=== PATIENT | male | born 1940 | race Caucasian/White ===

== ENCOUNTER 2018-10-07 06:42 | Outpatient (CLI) | payer MEDICARE ==
[2018-10-07 14:22] LABS: Bilirubin Negative (Negative); Blood, Urine Negative (Negative); Clarity CLEAR (Clear); Glucose, Urine (Dipstick) Negative (Negative); Leukocyte Trace (Negative); Nitrite Negative (Negative); Protein, Urine (Dipstick) Negative (Neg-Trace); Specific Gravity, Urine 1.013 (1.002-1.036); Urobilinogen 0.2 mg/dL (0.2-1.0)
[2018-10-07 14:27] LABS: Bacteria/HPF None Seen HPF (None Seen); Hyaline Casts/LPF 0-3 HYALINE CAST LPF (0-3 Hyaline); RBC/HPF 0-3 HPF (0-3); Squamous Epithelial 0-3 HPF (0-3); WBC/HPF None Seen HPF (0-3)
--- NOTE | 2018-10-08 21:05 | EKG ---
Test Reason : Blood Pressure : / mmHG Vent. Rate : 072 BPM Atrial Rate : 072 BPM P-R Int : 180 ms QRS Dur : 084 ms QT Int : 428 ms P-R-T Axes : 069 022 066 degrees QTc Int : 468 ms Normal sinus rhythm Possible Left atrial enlargement Borderline ECG No previous ECGs available Confirmed by Hannah BHAKTA ([id number]) on 10/08/2018 9:05:21 PM Referred By: THEODORA Confirmed By:Hannah BHAKTA
== END 2018-10-07 06:43 | disposition home or self-care (01) ==
LOC: LABBT 06:42
PROVIDERS: ATTEND Orthopaedic Surgery
DX: Z01.818 Encounter for other preprocedural examination (principal); M17.12 Unilateral primary osteoarthritis, left knee
CPT/HCPCS: 81001; 87081; 93005; 93010

== ENCOUNTER 2018-10-13 10:34 | Outpatient (CLI) | payer MEDICARE ==
[2018-10-13 11:08] LABS: #Lymphocytes 1.4 thou/uL (1.20-3.40); #Monocytes 0.4 thou/uL (0.11-0.59); #Neutrophils 3.1 thou/uL (1.40-6.50); %Basophils 0.7 % (0.0-1.0); %Eosinophils 0.7 % (0.0-10.0); %Monocytes 7.9 % (0.0-10.0); %Neutrophils 61.8 % (42.0-75.0); Hemoglobin 14.5 g/dL (14.0-18.0); Mean Corpuscular HGB CONC 32.9 g/dL (32.0-36.0); Mean Corpuscular Hemoglobin 33.3 pg (27.0-31.0); Mean Platelet Volume 7.7 fL (7.4-10.4); Platelet Count 207 thou/uL (130-400); Red Blood Cell (RBC) Count 4.35 mill/uL (4.70-6.10)
[2018-10-13 11:12] LABS: Prothrombin Time 13.5 SEC (12.0-14.7)
[2018-10-13 11:30] LABS: Anion Gap 13 mmol/L (10-20); BUN (Urea Nitrogen) 12 mg/dL (8.4-25.7); Calc. Creatinine Clearance 0 mL/min (70-130); Carbon Dioxide 26 mmol/L (23-31); Chloride 106 mmol/L (98-107); Estimated GFR-MDRD Greater than 90; Glucose 110 mg/dL (83-110); Potassium 4.1 mmol/L (3.5-5.1); Sodium 141 mmol/L (136-145)
== END 2018-10-13 10:35 | disposition home or self-care (01) ==
LOC: LABBT 10:34
PROVIDERS: ATTEND Orthopaedic Surgery
DX: Z01.812 Encounter for preprocedural laboratory examination (principal); M17.12 Unilateral primary osteoarthritis, left knee
CPT/HCPCS: 80048; 85025; 85610; 86850; 86900; 86901

== ENCOUNTER 2018-10-18 05:42 | Inpatient (IN) | payer MEDICARE ==
[2018-10-18] MEDS ORDERED: Sodium Chloride 0.9% 100 ML ONE (06:01)
[2018-10-18] MEDS ORDERED: Tranexamic Acid 1,000 MG/10 ML VIAL ONE ×2 (06:01→09:14)
[2018-10-18] MEDS ORDERED: CEFAZOLIN 2 GM/50 ML BAG ONE (06:01)
[2018-10-18] MEDS ORDERED: Midazolam HCl 2 mg/2 ml Vial ONE (06:29)
[2018-10-18] MEDS ORDERED: Fentanyl 100 MCG/2 ML VIAL ONE ×2 (06:29→09:38)
[2018-10-18] MEDS ORDERED: Bupivacaine PF 0.5% 30 ML VIAL ONE (06:32)
[2018-10-18] MEDS ORDERED: Promethazine HCl 25 MG/ML VIAL IM PRN ×3 (07:24→08:21)
[2018-10-18] MEDS ORDERED: Zolpidem Tartrate 5 MG TAB PO PRN ×2 (07:24→07:37)
[2018-10-18] MEDS ORDERED: diphenhydrAMINE 25 MG CAP PO PRN (07:24)
[2018-10-18] MEDS ORDERED: traMADol HCl 50 MG TAB PO PRN ×3 (07:24→07:37)
[2018-10-18] MEDS ORDERED: Acetaminophen 325 MG TAB PO PRN (07:24)
[2018-10-18] MEDS ORDERED: Fentanyl 100 MCG/2 ML VIAL SLOW IVP PRN (07:24)
[2018-10-18] MEDS ORDERED: HYDROcodone/Acetaminophen 10/325 mg Tablet PO PRN (07:24)
[2018-10-18] MEDS ORDERED: Ondansetron PF 4 MG/2 ML Vial IVP PRN ×2 (07:24→07:37)
[2018-10-18] MEDS ORDERED: CEFAZOLIN/Water 2 GM/20 ML SYRINGE SLOW IVP SCH (07:30)
[2018-10-18] MEDS ORDERED: Tranexamic Acid 1,000 MG in Sodium Chloride 0.9% 100 ML IVPB SCH (07:30)
[2018-10-18] MEDS ORDERED: Ropivacaine HCl/PF 250 ML in Premix Bag 1 BAG NERVE BLCK SCH (07:37)
[2018-10-18] MEDS ORDERED: Fentanyl 100 MCG/2 ML VIAL IV PRN (07:38)
[2018-10-18] MEDS ORDERED: HYDROcodone/Acetaminophen 7.5/325 mg Tablet PO PRN ×2 (07:39)
[2018-10-18] MEDS ORDERED: Ondansetron HCl/PF 4 MG/2 ML Vial IVP PRN (08:21)
[2018-10-18] MEDS ORDERED: Promethazine HCl 25 MG/ML VIAL SLOW IVP PRN (08:21)
[2018-10-18] MEDS ORDERED: Non-Formulary Item 1 EACH (Fexofenadine Hcl [Allegra Allergy] 180 MG) PO SCH (09:00)
[2018-10-18] MEDS: CeleCOXIB 100 MG CAP PO SCH (12:27)
[2018-10-18] MEDS: Ferrous Gluconate 324 MG TAB PO SCH ×2 (12:27→20:33)
[2018-10-18] MEDS: Sodium Chloride 0.9% 1,000 ML IV SCH ×2 (12:27→18:43)
[2018-10-18] MEDS: Aspirin 81 mg Enteric Coated Tablet PO SCH ×2 (12:27→20:33)
[2018-10-18] MEDS: Loratadine 10 MG TAB PO SCH (12:28)
[2018-10-18] MEDS: Multivitamin W/ Minerals 1 TAB PO SCH (12:28)
[2018-10-18] MEDS: Rosuvastatin 10 MG TAB PO SCH (12:28)
[2018-10-18] MEDS: Senokot S 8.6-50 MG TAB PO SCH ×2 (12:29→20:33)
[2018-10-18] MEDS: Ketorolac Tromethamine 30 MG/ML VIAL IVP SCH ×2 (13:13→18:48)
[2018-10-18] MEDS: CEFAZOLIN 2 GM/50 ML-DEXTROSE 2 GM in Premix Bag 1 BAG IVPB SCH ×2 (13:14→20:40)
[2018-10-18] MEDS ORDERED: Ropivacaine 0.2% HCl/PF (40 MG/20 ML VIAL) ONE (13:25)
[2018-10-18] MEDS ORDERED: Ropivacaine 0.5% HCl/PF (150 MG/30 ML VIAL) ONE (13:25)
[2018-10-18 13:46] VITALS: BMI 21.1
[2018-10-18] MEDS ORDERED: PROPOFOL 200 MG/20 ML VIAL ONE (14:04)
[2018-10-18] MEDS ORDERED: Lidocaine 1% PF 5 ML VIAL ONE (14:04)
[2018-10-18] MEDS ORDERED: Ondansetron PF 4 MG/2 ML Vial ONE (14:04)
[2018-10-18] MEDS ORDERED: ePHEDrine/0.9% NaCl/PF SYRINGE 50 mg/10 ml ONE (14:04)
[2018-10-18] MEDS ORDERED: Vancomycin HCl 1 GM in Premix Bag 1 BAG IVPB SCH (18:00)
--- NOTE | 2018-10-18 18:24 | PDOC.PN ---
- Subjective Encounter Start Date: 10/18/18 Encounter Start Time: 15:00 Pt seen for management of medical comorbidities including dyslipidemia. Denies any complaints. - Objective MAR Reviewed: Yes Vital Signs & Weight: Vital Signs (12 hours) Temp Pulse Resp BP Pulse Ox 10/18/18 10:17 97.6 F 69 16 141/78 H 98 Weight Weight 123 lb Additional Labs: Labs reviewed by me Phys Exam - Physical Examination Constitutional: NAD HEENT: moist MMs Neck: supple Respiratory: clear to auscultation bilateral Cardiovascular: RRR Gastrointestinal: soft s/p L knee surgery Neurological: moves all 4 limbs Psychiatric: normal affect Dx/Plan (1) Dyslipidemia Code(s): E78.5 - HYPERLIPIDEMIA, UNSPECIFIED Status: Chronic Comment: continue statin (2) Arthritis Code(s): M19.90 - UNSPECIFIED OSTEOARTHRITIS, UNSPECIFIED SITE Status: Chronic Comment: s/p L TKR DVT prophylaxis and pain management per primary service. - Plan * . Review of Systems - Review of Systems Respiratory: negative: Cough, Shortness of Breath, SOB with Excertion, Pleuritic Pain, Wheezing Cardiovascular: negative: chest pain, palpitations, orthopnea, paroxysmal nocturnal dyspnea, edema, light headedness - Medications/Allergies Allergies/Adverse Reactions: Allergies Allergy/AdvReac Type Severity Reaction Status Date / Time No Known Allergies Allergy Verified 10/07/18 13:07 Medications: Current Medications Acetaminophen (Tylenol) 650 mg PO Q4H PRN PRN Reason: Headache/Fever or Pain Hydrocodone Bitart/Acetaminophen ([place] 10/325) 1 tab PO Q4H PRN PRN Reason: Moderate Pain (4-6) Hydrocodone Bitart/Acetaminophen ([place] 10/325) 2 tab PO Q4H PRN PRN Reason: Severe Pain (7-10) Aspirin (Ecotrin) 81 mg PO BID [facility] Last Admin: 10/18/18 12:27 Dose: Not Given Celecoxib (Celebrex) 200 mg PO DAILY [facility] Last Admin: 10/18/18 12:27 Dose: Not Given Diphenhydramine HCl (Benadryl) 25 mg PO Q6H PRN PRN Reason: Itching Fentanyl (Sublimaze) 100 mcg SLOW IVP Q1H PRN PRN Reason: Severe Pain (7-10) Fentanyl (Sublimaze) 50 mcg IV Q1H PRN PRN Reason: BREAKTHROUGH PAIN Ferrous Gluconate (Fergon) 324 mg PO BID [facility] Last Admin: 10/18/18 12:27 Dose: Not Given Sodium Chloride (Normal Saline 0.9%) 1,000 mls @ 100 mls/hr IV .Q10H [facility] Last Admin: 10/18/18 12:27 Dose: Not Given Vancomycin HCl 1 gm/ Device 200 mls @ 200 mls/hr IVPB 1800 [facility] Stop: 10/18/18 18:59 Ropivacaine 250 ml/ Device 250 mls @ 0 mls/hr NERVE BLCK INF [facility] Cefazolin Sodium/Dextrose 2 gm (/ Device) 50 mls @ 100 mls/hr IVPB Q8HR [facility] Stop: 10/18/18 22:29 Last Admin: 10/18/18 13:14 Dose: 50 mls Iron/Minerals/Multivitamins (Theragran M) 1 tab PO DAILY [facility] Last Admin: 10/18/18 12:28 Dose: Not Given Ketorolac Tromethamine (Toradol) 15 mg IVP Q6HR [facility] Stop: 10/20/18 06:01 Last Admin: 10/18/18 13:13 Dose: 15 mg Loratadine (Claritin) 10 mg PO DAILY [facility] Last Admin: 10/18/18 12:28 Dose: Not Given Ondansetron HCl (Zofran) 4 mg IVP Q6H PRN PRN Reason: Nausea/Vomiting Ondansetron HCl (Zofran) 4 mg IVP Q6H PRN PRN Reason: Nausea/Vomiting (Lutein Extract/Zeaxanthin Ext [ Lutein 15 Mg Softgel ] 1 Cap) Hm Med 0 each PO DAILY [facility] Promethazine HCl (Phenergan) 12.5 mg IM Q4H PRN PRN Reason: Nausea/Vomiting Rosuvastatin Calcium (Crestor) 50 mg PO DAILY [facility] Last Admin: 10/18/18 12:28 Dose: Not Given Senna/Docusate Sodium (Senokot S) 2 tab PO BID [facility] Last Admin: 10/18/18 12:29 Dose: Not Given Sodium Chloride (Flush - Normal Saline) 10 ml IVF PRN PRN PRN Reason: Saline Flush Tramadol HCl (Ultram) 100 mg PO Q6H PRN PRN Reason: Moderate Pain (4-6) Zolpidem Tartrate (Ambien) 5 mg PO HSPRN PRN PRN Reason: Insomnia
[2018-10-19] MEDS: Ketorolac Tromethamine 30 MG/ML VIAL IVP SCH ×4 (00:16→17:58)
[2018-10-19] MEDS: Sodium Chloride 0.9% 1,000 ML IV SCH ×3 (03:50→20:30)
[2018-10-19 05:53] LABS: Hemoglobin 11.7 g/dL (12.0-16.0); Mean Corpuscular HGB CONC 33.9 g/dL (32.0-36.0); Mean Corpuscular Hemoglobin 33.8 pg (27.0-31.0); Mean Corpuscular Volume 99.9 fL (78.0-98.0); Platelet Count 158 thou/uL (130-400); RBC Distribution Width 10.8 % (11.5-14.5); Red Blood Cell (RBC) Count 3.45 mill/uL (4.20-5.40); White Blood Cell (WBC) Count 9.3 thou/uL (4.8-10.8)
[2018-10-19] MEDS: Vit A,C & E/Lutein/Minerals Tablet PO SCH (08:42)
[2018-10-19] MEDS: Senokot S 8.6-50 MG TAB PO SCH ×2 (08:42→20:21)
[2018-10-19] MEDS: Ferrous Gluconate 324 MG TAB PO SCH ×2 (08:43→20:22)
[2018-10-19] MEDS: CeleCOXIB 100 MG CAP PO SCH (08:43)
[2018-10-19] MEDS: Aspirin 81 mg Enteric Coated Tablet PO SCH ×2 (08:43→20:21)
[2018-10-19] MEDS: Multivitamin W/ Minerals 1 TAB PO SCH (08:43)
[2018-10-19] MEDS: Loratadine 10 MG TAB PO SCH (08:44)
--- NOTE | 2018-10-19 10:39 | OP ---
DATE OF PROCEDURE: 10/18/2018 PREOPERATIVE DIAGNOSIS: Left knee osteoarthrosis. POSTOPERATIVE DIAGNOSIS: Left knee osteoarthrosis. PROCEDURE PERFORMED: Left total knee replacement using [employer] pinless navigation system. LIVESTOCK SHOWMAN: Mitchel Fonseca MD BLOOD LOSS: Minimal. ANESTHESIA: The patient did have a general anesthetic as well as a preoperative block. DISPOSITION: She did go to recovery room in stable condition. IMPLANTS: Implants to the left knee, [employer] total knee system. The femur was a size 3 cruciate retaining. We used a size 3 primary tibial base plate. We used a 3 x 9 mm CS X3 tibial bearing and an asymmetric 29 x 9 X3 patella. INDICATIONS: A 78-year-old female, who has failed all nonoperative treatment for left knee osteoarthrosis and at this time, wished to have her knee replaced. COMPLICATIONS: None. TOURNIQUET TIME: PROCEDURE IN DETAIL: After all appropriate consent forms were explained and signed, the patient was taken back to the operating room and at this time was given general anesthetic. Once the level of anesthesia was appropriate, a well-padded tourniquet was placed on the left leg, and the leg was then prepped and draped in standard surgical fashion. The limb was exsanguinated and tourniquet taken up to 300 mmHg. Midline incision was made with a 10 blade down through the skin and subcutaneous tissue. Bovie electrocautery was used to coagulate any brisk venous bleeding. A new blade was used to make a medial parapatellar arthrotomy. Small subperiosteal release was performed medially and excess fat pad was removed. The knee was flexed up to gain access to the femur. The femur was navigated and distal femoral resection was made. Epicondylar access was used to align our sizing jig and this was pinned in place. We sized our femur to be a 3. 4:1 cutting block was applied and pinned. Anterior and posterior chamfer cuts were then made. We navigated out our proximal tibia and made our proximal tibial resection. Spreaders were used to remove any posterior osteophytes off the back of the femur as well as remaining meniscal tissue. A long alignment ramon was then used to achieve correct rotation of our tibial baseplate and a size 3 was chosen. This was pinned in place. We trialed the polyethylene and a 3 x 9 mm CS X3 polyethylene gave us full extension and good stability throughout range of motion. Two towel clips and a saw were used to cut our patella. Three lug nuts were drilled and 29 x 9 X3 patella was trialed which sat nicely in the trochlear groove. We then drilled our femur and punched our tibia. All components were removed. The knee was thoroughly irrigated and dried. Cement was mixed into the cement gun on the back table. Components were then placed. The knee was held out in full extension until the cement had dried. All excess bone cement was removed. Multiple #2 Vicryl stitches as well as a Quill were used to close our extensor mechanism. 0 Quill followed by a running Monoderm was then used to close the skin. Surgicel glue was then used on the skin. Once this had dried, soft tissue dressing was applied to the limb, tourniquet was let down, and the toes pinked up nicely. The patient was then awakened and taken to the recovery room in stable condition. All counts were correct at the end of the case. The patient did receive preoperative IV antibiotics. The patient was injected with Exparel for postoperative pain relief. Job ID: [id number]
--- NOTE | 2018-10-19 12:16 | PDOC.PN ---
- Subjective Encounter Start Date: 10/19/18 Encounter Start Time: 07:30 -: old records requested/rev Patient seen and examined. No new complaints. No overnight events - Objective Resuscitation Status - Order Detail: 10/19/18 07:57 Resuscitation Status Routine Resuscitation Status: FULL: Full Resuscitation MAR Reviewed: Yes Vital Signs & Weight: Vital Signs (12 hours) Temp Pulse Resp BP Pulse Ox 10/19/18 07:08 98.7 F 84 16 107/65 95 10/19/18 04:00 97.8 F 80 16 100/79 93 L Weight Weight 123 lb I&O: 10/18/18 10/19/18 10/20/18 06:59 06:59 06:59 Intake Total 1520 Output Total 400 Balance 1120 Result Diagrams: 10/19/18 05:04 Phys Exam - Physical Examination Constitutional: NAD HEENT: PERRLA, moist MMs, sclera anicteric Neck: no JVD, supple Respiratory: no wheezing, no rales, no rhonchi Cardiovascular: RRR, no significant murmur, no rub Gastrointestinal: soft, non-tender, no distention, positive bowel sounds Musculoskeletal: no edema, pulses present left knee with dressing, nerve block in place Neurological: non-focal, normal sensation, moves all 4 limbs Lymphatic: no nodes Psychiatric: normal affect, A&O x 3 Skin: no rash, normal turgor Dx/Plan (1) Status post total left knee replacement Code(s): Z96.652 - PRESENCE OF LEFT ARTIFICIAL KNEE JOINT Status: Acute (2) Anemia, macrocytic Code(s): D53.9 - NUTRITIONAL ANEMIA, UNSPECIFIED Status: Chronic (3) Dyslipidemia Code(s): E78.5 - HYPERLIPIDEMIA, UNSPECIFIED Status: Chronic Comment: continue statin (4) Osteoarthritis Code(s): M19.90 - UNSPECIFIED OSTEOARTHRITIS, UNSPECIFIED SITE Status: Chronic - Plan cont current plan of care, plan discussed w/ family, PT/OT * continue aspirin for DVT prophylaxis * continue her home medication * PT/OT as per [facility] protocol * discussed with family * medication reviewed as below * symptomatic treatment * nerve block as per anesthesia * discharge per primary team * medically stable * pain controlled. Review of Systems - Review of Systems ENT: negative: Ear Pain, Ear Discharge, Nose Pain, Nose Discharge, Nose Congestion, Mouth Pain, Mouth Swelling, Throat Pain, Throat Swelling, Other Respiratory: negative: Cough, Dry, Shortness of Breath, Hemoptysis, SOB with Excertion, Pleuritic Pain, Sputum, Wheezing Cardiovascular: negative: chest pain, palpitations, orthopnea, paroxysmal nocturnal dyspnea, edema, light headedness, other Gastrointestinal: negative: Nausea, Vomiting, Abdominal Pain, Diarrhea, Constipation, Melena, Hematochezia, Other Genitourinary: negative: Dysuria, Frequency, Incontinence, Hematuria, Retention , Other Musculoskeletal: negative: Neck Pain, Shoulder Pain, Arm Pain, Back Pain, Hand Pain, Leg Pain, Foot Pain, Other - Medications/Allergies Allergies/Adverse Reactions: Allergies Allergy/AdvReac Type Severity Reaction Status Date / Time No Known Allergies Allergy Verified 10/07/18 13:07 Medications: Current Medications Acetaminophen (Tylenol) 650 mg PO Q4H PRN PRN Reason: Headache/Fever or Pain Hydrocodone Bitart/Acetaminophen ([place] 10/325) 1 tab PO Q4H PRN PRN Reason: Moderate Pain (4-6) Hydrocodone Bitart/Acetaminophen ([place] 10/325) 2 tab PO Q4H PRN PRN Reason: Severe Pain (7-10) Aspirin (Ecotrin) 81 mg PO BID [facility] Last Admin: 10/19/18 08:43 Dose: 81 mg Celecoxib (Celebrex) 200 mg PO DAILY [facility] Last Admin: 10/19/18 08:43 Dose: 200 mg Diphenhydramine HCl (Benadryl) 25 mg PO Q6H PRN PRN Reason: Itching Last Admin: 10/18/18 20:35 Dose: 25 mg Fentanyl (Sublimaze) 100 mcg SLOW IVP Q1H PRN PRN Reason: Severe Pain (7-10) Fentanyl (Sublimaze) 50 mcg IV Q1H PRN PRN Reason: BREAKTHROUGH PAIN Ferrous Gluconate (Fergon) 324 mg PO BID [facility] Last Admin: 10/19/18 08:43 Dose: 324 mg Sodium Chloride (Normal Saline 0.9%) 1,000 mls @ 100 mls/hr IV .Q10H [facility] Last Admin: 10/19/18 03:50 Dose: Not Given Ropivacaine 250 ml/ Device 250 mls @ 0 mls/hr NERVE BLCK INF [facility] Last Admin: 10/19/18 11:18 Dose: 250 mls Iron/Minerals/Multivitamins (Theragran M) 1 tab PO DAILY [facility] Last Admin: 10/19/18 08:43 Dose: 1 tab Ketorolac Tromethamine (Toradol) 15 mg IVP Q6HR [facility] Stop: 10/20/18 06:01 Last Admin: 10/19/18 05:06 Dose: 15 mg Loratadine (Claritin) 10 mg PO DAILY [facility] Last Admin: 10/19/18 08:44 Dose: 10 mg Multivitamins/Minerals (Ocuvite With Lutein) 1 tab PO DAILY [facility] Last Admin: 10/19/18 08:42 Dose: 1 tab Ondansetron HCl (Zofran) 4 mg IVP Q6H PRN PRN Reason: Nausea/Vomiting Ondansetron HCl (Zofran) 4 mg IVP Q6H PRN PRN Reason: Nausea/Vomiting Promethazine HCl (Phenergan) 12.5 mg IM Q4H PRN PRN Reason: Nausea/Vomiting Rosuvastatin Calcium (Crestor) 5 mg PO DAILY [facility] Senna/Docusate Sodium (Senokot S) 2 tab PO BID [facility] Last Admin: 10/19/18 08:42 Dose: 2 tab Sodium Chloride (Flush - Normal Saline) 10 ml IVF PRN PRN PRN Reason: Saline Flush Tramadol HCl (Ultram) 100 mg PO Q6H PRN PRN Reason: Moderate Pain (4-6) Zolpidem Tartrate (Ambien) 5 mg PO HSPRN PRN PRN Reason: Insomnia
[2018-10-19] MEDS: Rosuvastatin 10 MG TAB PO SCH (13:40)
[2018-10-20] MEDS: Ketorolac Tromethamine 30 MG/ML VIAL IVP SCH ×2 (00:28→05:24)
[2018-10-20 06:28] LABS: Hemoglobin 10.3 g/dL (12.0-16.0); Mean Corpuscular HGB CONC 32.7 g/dL (32.0-36.0); Mean Corpuscular Hemoglobin 33.2 pg (27.0-31.0); Mean Platelet Volume 8.2 fL (7.4-10.4); Platelet Count 137 thou/uL (130-400); RBC Distribution Width 10.9 % (11.5-14.5); White Blood Cell (WBC) Count 8.3 thou/uL (4.8-10.8)
[2018-10-20] MEDS: Sodium Chloride 0.9% 1,000 ML IV SCH ×2 (07:57→10:32)
[2018-10-20 08:03] VITALS: BP 121/75; TEMP 98.5
[2018-10-20] MEDS: Aspirin 81 mg Enteric Coated Tablet PO SCH (08:30)
[2018-10-20] MEDS: CeleCOXIB 100 MG CAP PO SCH (08:30)
[2018-10-20] MEDS: Senokot S 8.6-50 MG TAB PO SCH (08:30)
[2018-10-20] MEDS: Multivitamin W/ Minerals 1 TAB PO SCH ×2 (08:30→08:34)
[2018-10-20] MEDS: Ferrous Gluconate 324 MG TAB PO SCH (08:30)
[2018-10-20] MEDS: Vit A,C & E/Lutein/Minerals Tablet PO SCH (08:31)
[2018-10-20] MEDS: Loratadine 10 MG TAB PO SCH (08:31)
[2018-10-20] MEDS: HYDROcodone/Acetaminophen 10/325 mg Tablet PO PRN ×2 (08:32→12:23)
[2018-10-20] MEDS ORDERED: Rosuvastatin 5 MG TAB PO SCH (09:00)
--- NOTE | 2018-10-20 10:01 | PRG ---
DATE OF SERVICE: 10/20/2018 PROGRESS NOTE/SIGN-OUT NOTE/TRANSFER OF CARE NOTE/DISCHARGE SUMMARY PRIMARY CARE PHYSICIAN: Dr. Niya Santoyo. DISCHARGE DISPOSITION: Home. PRIMARY DISCHARGE DIAGNOSIS: Status post left total knee replacement. SECONDARY DISCHARGE DIAGNOSES: 1. Macrocytic anemia. 2. Dyslipidemia. 3. Osteoarthritis. PRIMARY PROCEDURE/OPERATION: Left total knee replacement by Dr. Leary. RADIOLOGICAL INVESTIGATION: None. SIGNIFICANT LABORATORY DATA: WBC 8.3, hemoglobin 10.3, MCV 101, and platelet 137. DISCHARGE MEDICATIONS: 1. Biotin 5000 unit p.o. daily. 2. Calcium with vitamin D one tablet p.o. daily. 3. Nguyen 180 mg daily. 4. Lutein with Ocuvite one capsule daily. 5. Crestor 5 mg daily. 6. Aspirin 81 mg p.o. b.i.d. 7. [place]ulley 10 one or two tablets q.4 hourly p.r.n. for pain. CONTRAINDICATION: None. CODE STATUS: Full code. INPATIENT PLANT TECHNICIAN/CONTROL ROOM OPERATOR: Dr. Leary, was primary while in hospital. Sound Team was consulted for medical comanagement. TEST RESULTS PENDING ON DISCHARGE: None. ALLERGIES: NO KNOWN DRUG ALLERGIES. DISCHARGE PLAN: Posthospital, the patient will follow up with Dr. Leary on October 27, 2018 at 1:30 p.m. The patient will make appointment with primary care physician in one week. HOSPITAL COURSE: A 78-year-old female with above-mentioned medical problem, who was electively admitted by Dr. Leary for left total knee replacement, which was done on October 18, 2018. While in the hospital, the patient was given aspirin for DVT prophylaxis. She had nerve block under anesthesia. The patient was evaluated with [facility] protocol treatment. While in hospital, we continued the patient's home medication. Sound Team was consulted for medical comanagement. The patient's medical problems remained stable. She did not have any hospital complication. The patient is planned for discharge today. The patient was seen and examined at bedside today. REVIEW OF SYSTEMS: All review of systems reviewed with her and negative. Plan of care discussed with the patient and family member. PHYSICAL EXAMINATION: VITAL SIGNS: Currently, temperature 98.5, pulse 83, respiratory rate 18, saturation 95%, blood pressure 121/75, and weight 123 pounds. GENERAL: The patient is currently alert, awake, no obvious acute distress. HEENT: Head; normocephalic and atraumatic. Eyes; pupils are round, reactive to light. Extraocular muscle intact. ENT, oropharynx within normal limits. Moist mucous membranes. No oral lesion. No pharyngeal erythema. No exudate. NECK: Supple. No JVD. No thyromegaly. No carotid bruit. No jugular venous distention. LUNGS: Clear without any rhonchi or rales. CARDIAC: S1 and S2 regular without any murmur. ABDOMEN: Soft and benign without any tenderness. EXTREMITIES: No edema. NEUROLOGIC: Nonfocal examination. The patient is medically stable for discharge today. Job ID: [id number]
== END 2018-10-20 14:04 | disposition home or self-care (01) | DRG 470 ==
LOC: SDC 05:42 → SURG A 07:24 → EDSEX 07:24
PROVIDERS: ADMIT Orthopaedic Surgery; ATTEND Orthopaedic Surgery
PROC: 0SRD0J9 Replacement of Left Knee Joint with Synthetic Substitute, Cemented, Open Approach (ICD-10-PCS; principal; 2018-10-18)
DX: M17.12 Unilateral primary osteoarthritis, left knee (principal); D64.9 Anemia, unspecified; E78.5 Hyperlipidemia, unspecified
CPT/HCPCS: 36415; 85027; C1713; C1776; J1885; J2001; J2250; J2405; J2704; J2795; J3010; J3370; J7050; Q0163; S0020